=== PATIENT | female | born 1985 | race Caucasian/White ===

== ENCOUNTER → 2023-06-01 | Outpatient (CLI) | payer BC ==
[~2023-06-01] MED LIST: AMBIEN 5MG TABLE5 MG PO; CIPRO 500MG TA500 MG PO; FLEXERIL 1010 MG/TAB PO; LORTAB 7.5/5001 TAB PO; NO HOME MEDICATIONS; NORCO 325 MG-51 TAB PO; PERCOCET 325 MG1 TA2 PO; PHENERGAN 25 TA25 MG PO; PHENERGAN25 MG RC; PRENATAL1 TA2 PO; ROBINUL1 MG PO; TAMIFLU 75MG75 MG PO; ZOFRAN 4MG T4 MG/TAB PO; ZOFRAN ODT4 MG PO
== END ==
LOC: COL.LAB 16:54
DX: J30.9 Allergic rhinitis, unspecified (principal)